=== PATIENT | male | born 1985 | race Two or more races ===

== ENCOUNTER 2022-04-19 02:00 | Emergency (ER) | payer SELFPAY ==
[~2022-04-19] VITALS: Ht 172.7 cm; Wt 127.0 kg
[2022-04-19 02:02] VITALS: BP 0/0
[2022-04-19] MEDS ORDERED: EPINEPHrine HCL 1 MG/10 ML SYRG ONE ×3 (02:17→02:42)
[2022-04-19] MEDS ORDERED: ALTEPLASE (RECOMBINANT) 100 MG ONE (02:35)
[2022-04-19 02:41] LABS: BUN/Creatinine Ratio 13.1; Magnesium 2.8 mg/dL (1.6-2.6); Potassium 4.1 mmol/L (3.5-5.1)
[2022-04-19 02:44] LABS: Bilirubin, Total 0.2 mg/dL (0.2-1.0); Total Protein 6.6 g/dL (6.4-8.2)
[2022-04-19 02:47] LABS: INR 1.22 (0.9-1.15); Partial Thromboplastin Time 41.6 sec (23.6-33.0)
[2022-04-19 02:59] LABS: Hemoglobin 14.8 g/dL (13.5-17.5)
[2022-04-19 03:00] LABS: Hematocrit 47.4 % (41.0-53.0); Mean Corpuscular Hemoglobin 30.6 pg (28.0-32.0); Mean Corpuscular Hgb Conc. 31.2 g/dL (32.0-36.0); Mean Corpuscular Volume 98.1 fL (80.0-100.0); Red Blood Cells 4.83 10^6/uL (4.5-5.90); Red Cell Distribution Width 14.7 % (11.8-14.3); White Blood Cell 13.5 10^3/uL (4.4-10.8)
[2022-04-19 03:02] LABS: Basophils % (manual) 0 (0.0-2.0); Blast Cells 0; Eosinophils % (manual) 0 (0-7); Metamyelocytes % 0; Promyelocytes % 0; Reactive Lymphocytes 0
[2022-04-19 04:14] LABS: Band Neutrophils % (manual) 7; Lymphocytes % (manual) 46 (10.0-50.0); Monocytes % (manual) 7 (0-12); Myelocytes % 2
== END 2022-04-19 11:50 ==
LOC: EDBD 02:00 → ER 02:00
DX: I46.9 Cardiac arrest, cause unspecified (principal); I11.0 Hypertensive heart disease with heart failure; I50.9 Heart failure, unspecified; J45.909 Unspecified asthma, uncomplicated
CPT/HCPCS: 36415; 80053; 83735; 84484; 85007; 85027; 85379; 85610; 85730; 92950; 99285; J0171; J2997